=== PATIENT | male | born 1965 | race African-American/Black ===

== ENCOUNTER 2017-09-21 11:02 | Emergency (ER) | payer SELFPAY | END 2017-09-21 11:25 | disposition home or self-care (01) | LOC: NAV ERS 11:02 | DX: M10.9 Gout, unspecified (principal); F17.220 Nicotine dependence, chewing tobacco, uncomplicated | CPT/HCPCS: 99283 ==

== ENCOUNTER 2019-10-27 20:03 | Emergency (ER) | payer BC, OTHER | END 2019-10-27 20:25 | disposition home or self-care (01) | LOC: NAV ERS 20:03 | DX: U07.1 COVID-19 (principal) | CPT/HCPCS: 87635; 99283; U0003 ==